=== PATIENT | female | born 1935 | race Caucasian/White ===

== ENCOUNTER 2019-02-18 10:44 | Emergency (ER) | payer OTHER ==
[2019-02-18] MEDS: CEFEPIME 1GM/50 ML (PMX) 50 ML IVPB (12:09)
[2019-02-18] MEDS: SODIUM CHLORIDE 0.9% 1L BAG IV* (12:09)
[2019-02-18 12:18] LABS: ADD MAN DIFF? NO
[2019-02-18 12:22] LABS: BASOPHIL # 0.1 10^3/ul (0.0-0.1); BASOPHILS % 0.8 % (0.0-2.0); EOSINOPHILS # 1.3 10^3/ul (0.0-0.5); HEMATOCRIT 43.3 % (37.0-47.0); HEMOGLOBIN 14.1 g/dl (12.0-16.0); LYMPHOCYTES # 3.3 10^3/ul (0.8-2.9); LYMPHOCYTES % 27.6 % (15.0-51.0); MEAN CORPUSCULAR HEMOGLOBIN 29.8 pg (29.0-33.0); MEAN CORPUSCULAR HGB CONC 32.6 g/dl (32.0-37.0); MEAN CORPUSCULAR VOLUME 91.5 fl (82.0-101.0); MEAN PLATELET VOLUME 9.7 fl (7.4-10.4); MONOCYTE # 0.8 10^3/ul (0.3-0.9); MONOCYTES % 6.5 % (0.0-11.0); NEUTROPHIL # 6.2 10^3/ul (1.6-7.5); NEUTROPHILS % 52.7 % (39.0-77.0); PLATELET COUNT 474 10^3/UL (140-415); RED BLOOD COUNT 4.73 10^6/ul (4.20-5.40); RED CELL DISTRIBUTION WIDTH 13.6 % (11.5-14.5)
[2019-02-18 12:22] LABS: WHITE BLOOD COUNT 11.8 10^3/ul (4.8-10.8)
[2019-02-18] MEDS: VANCOMYCIN 1 GM (PMX) 250 ML IVPB (12:36)
[2019-02-18] MEDS: ALBUTEROL 0.083% (NEB) 2.5 MG/3 ML AMP INH (12:39)
[2019-02-18] MEDS: IPRATROPIUM (NEB) 0.5 MG/2.5 ML AMP INH (12:39)
[2019-02-18 12:43] LABS: ANION GAP 7 (5-13); BLOOD UREA NITROGEN 12 mg/dl (7-20); CALCIUM 9.1 mg/dl (8.4-10.2); CARBON DIOXIDE 30 mmol/L (21-31); CHLORIDE 104 mmol/L (97-110); CREATININE 0.47 mg/dl (0.44-1.00); GLUCOSE 311 mg/dl (70-220); POTASSIUM 4.2 mmol/L (3.5-5.1); SODIUM 141 mmol/L (135-144)
[2019-02-18 12:53] LABS: TROPONIN-I < 0.012 ng/ml (0.000-0.120)
== END 2019-02-18 20:39 | disposition short-term general hospital (02) ==
LOC: E/R 10:44
DX: J18.1 Lobar pneumonia, unspecified organism (principal); I10 Essential (primary) hypertension; E87.2 Acidosis; R73.9 Hyperglycemia, unspecified; Z79.82 Long term (current) use of aspirin; Z79.84 Long term (current) use of oral hypoglycemic drugs
CPT/HCPCS: 36415; 71045; 80048; 83605; 84484; 85025; 87040-91; 87400; 93005; 94664; 96365; 96366; 96367; 99285-25